=== PATIENT | female | born 1960 | race Hispanic/Latino ===

== ENCOUNTER 2018-03-13 06:52 | Outpatient (CLI) | payer BC ==
--- NOTE | 2018-03-13 08:48 | ULT ---
PELVIC ULTRASOUND WITH DOPPLER: (transabdominal, transvaginal, nunez scale, color flow, and spectral Doppler) History Vaginal bleeding. FINDINGS: The uterus measures 7.6 x 4.3 x 3.5 cm without focal mass or endometrial fluid. The endometrium moody ures 12 mm in thickness. The left ovary is not visualized. The right ovary is normal measuring 3.8 x 2.6 x 1.7 cm and demonst rates flow. No adnexal masses are noted on either side. No free fluid is seen. IMPRESSION: 1. Nonvisualization of the left ovary. 2. Endometrial thickness is 12 mm. POS: OFF
== END 2018-03-13 06:53 | disposition home or self-care (01) ==
LOC: BICULT 06:52
PROVIDERS: ATTEND Family Medicine
DX: Z12.31 Encounter for screening mammogram for malignant neoplasm of breast (principal); N92.1 Excessive and frequent menstruation with irregular cycle
CPT/HCPCS: 76856; 77063; 77067

== ENCOUNTER 2018-04-30 15:30 | Inpatient (IN) | payer BC ==
[2018-05-01 15:39] VITALS: BMI 34.5
[2018-05-01 16:39] LABS: #Basophils 0.1 thou/uL (0.0-0.2); #Eosinphils 0.2 thou/uL (0.0-0.7); #Monocytes 0.5 thou/uL (0.11-0.59); #Neutrophils 3.6 thou/uL (1.40-6.50); %Basophils 0.9 % (0.0-1.0); %Eosinophils 2.8 % (0.0-10.0); %Lymphocytes 31.2 % (21.0-51.0); %Monocytes 7.3 % (0.0-10.0); %Neutrophils 57.8 % (42.0-75.0); Hemoglobin 13.4 g/dL (12.0-16.0); Mean Corpuscular Hemoglobin 30.9 pg (27.0-31.0); Mean Corpuscular Volume 93.5 fL (78.0-98.0); Mean Platelet Volume 8.8 fL (7.4-10.4); Platelet Count 259 thou/uL (130-400); RBC Distribution Width 14.1 % (11.5-14.5); Red Blood Cell (RBC) Count 4.32 mill/uL (4.20-5.40); White Blood Cell (WBC) Count 6.3 thou/uL (4.8-10.8)
[2018-05-01 16:57] LABS: Anion Gap 14 mmol/L (10-20); BUN (Urea Nitrogen) 21 mg/dL (9.8-20.1); Calc. Creatinine Clearance 0 mL/min (70-130); Calcium 10.1 mg/dL (7.8-10.44); Carbon Dioxide 22 mmol/L (22-29); Chloride 104 mmol/L (98-107); Estimated GFR-MDRD 71; Glucose 150 mg/dL (70-105); Potassium 4.1 mmol/L (3.5-5.1); Sodium 136 mmol/L (136-145)
--- NOTE | 2018-05-06 12:25 | HP ---
DATE OF PLANNED PROCEDURE: 05/07/2018. PROCEDURE TO BE PERFORMED: Robotic-assisted total laparoscopic hysterectomy with bilateral salpingo-oophorectomy. PREOPERATIVE DIAGNOSIS: Postmenopausal bleeding with endometrial biopsy reporting complex endometrial hyperplasia with focal atypia. HISTORY OF PRESENT ILLNESS: Ms. Shoshana Lehman is a 58-year-old female, who was referred from Dr. Aguilar for postmenopausal bleeding that began in February of 2018. The patient reports going through menopause at approximately age 14. She had no bleeding until February of this year, where she reports she bled for four continuous days like a menstrual period. She reports having cramps at that time. The patient denies any other prior postmenopausal bleeding. She had ultrasound evaluation at [facility] with an endometrial stripe measuring 12 mm. At her first consultation with me, we completed an office endometrial biopsy, which resulted complex endometrial hyperplasia with focal atypia. The patient was started on progestin therapy and returned to the office for review and discussion of her results. We discussed the diagnosis of endometrial hyperplasia with atypia as well as the management options, which included hysteroscopy with dilation and curettage versus robotic total laparoscopic hysterectomy with benign Gynecology versus referral to Gynecologic Oncology for further management. The risk and benefits of each of these options were discussed with the patient and she desired to schedule hysterectomy with bilateral salpingo-oophorectomy here locally at [place], understanding that there is a risk of concomitant endometrial cancer and potential need for future surgical or medical management after her procedure with ok. REVIEW OF SYSTEMS: Negative except as stated above. PAST MEDICAL HISTORY: Significant for obesity, diabetes, hypercholesterolemia, hypothyroidism, and depression. CURRENT MEDICATIONS: 1. Fluoxetine 20 mg. 2. Glipizide ER 10 mg once a day. 3. . 4. Levothyroxine 25 mcg once a day. 5. Losartan 25 mg once a day. 6. Medroxyprogesterone 10 mg once a day. 7. Metformin 1000 mg b.i.d. 8. Pioglitazone 30 mg once a day. 9. Rosuvastatin 20 mg at bedtime. 10. Tradjenta 5 mg tablet once a day. ALLERGIES: NO KNOWN DRUG ALLERGIES. PAST OBSTETRICAL HISTORY: G4, P3-0-1-3 with two vaginal deliveries and one section. GYNECOLOGIC HISTORY: Menopause reported at age 49 with postmenopausal bleeding that began at age 58. Last Pap smear March of 2017 within normal limits. No history of abnormal Pap smear. Most recent mammogram March of 2018, reported normal. No history of STDs or PID. No history of endometriosis, fibroids, infertility, PCOS, or ovarian cyst. FAMILY HISTORY: Negative. SOCIAL HISTORY: The patient is . She is a nonsmoker. PAST SURGICAL HISTORY: Significant for one section. PHYSICAL EXAMINATION: VITAL SIGNS: Height 5 feet 3 inches, weight 224 pounds, BMI of 40, blood pressure 134/78, pulse 86, respirations 18, and O2 saturation 98%. GENERAL: No acute distress. Alert and oriented, obese. HEENT: Grossly normal. LUNGS: Chest nonlabored breathing. Breath sounds not decreased. ABDOMEN: Soft and nondistended. No tenderness. No guarding. No masses; however, exam limited by obesity. : Normal external female genitalia. Normal vaginal mucosa. No vaginal discharge. No cervical discharge. No cervical lesions. Uterus, no masses, nonenlarged, nontender. Bladder and urethra normal meatus. Normal bladder. RECTUM: No perianal skin lesions or fissures. EXTREMITIES: No swelling. Normal range of motion. MUSCULOSKELETAL: No gross deformity. SKIN: No rashes. NEUROLOGIC: Grossly intact. MENTAL STATUS: Alert and oriented. Appropriate mood and affect. DIAGNOSTIC STUDIES: Pap smear 03/28/2018, negative for intraepithelial lesion or malignancy. HPV, negative. Endometrial biopsy, complex hyperplasia with atypia. Most recent hemoglobin A1c reported 7.4%. Ultrasound on March 13, 2018, reports uterus measuring 7.6 x 4.3 x 3.5 cm with no focal masses or endometrial fluid. The endometrium measures 12 mm in thickness. The left ovary was not visualized and the right ovary appeared normal. ASSESSMENT AND PLAN: Ms. Shoshana Lehman is a 58-year-old G4, P3-0-1-3 with postmenopausal bleeding and an endometrial sampling that reports complex hyperplasia with focal atypia. The patient has been offered four endometrial sampling with hysteroscopy and dilatation and curettage versus robotic total laparoscopic hysterectomy with bilateral salpingo-oophorectomy with benign gynecology versus referral to Director Decision Support/Oncology. The patient understands the risks are to include, but not limited to, bleeding, infection, damage to intraabdominal pelvic organs, inability to fully diagnose and treat all conditions at the time of surgery and possible need for future medical and/or surgical management. The patient has requested to schedule robotic assisted total laparoscopic hysterectomy with bilateral salpingo-oophorectomy with me at [facility]. Her questions have been answered to her satisfaction and she desires to proceed with the procedure as listed above. Job ID: [id number]
[2018-05-07] MEDS ORDERED: CeleCOXIB 100 MG CAP ONE (06:15)
[2018-05-07] MEDS ORDERED: Gabapentin 300 MG CAP ONE (06:15)
[2018-05-07] MEDS ORDERED: Famotidine/PF 20 mg/2ml Vial ONE (06:16)
[2018-05-07] MEDS ORDERED: Midazolam HCl 2 mg/2 ml Vial ONE ×2 (06:31→07:27)
[2018-05-07] MEDS ORDERED: Fentanyl 100 MCG/2 ML VIAL ONE ×3 (06:31→10:54)
[2018-05-07] MEDS ORDERED: Bupivacaine HCl 0.5%/Epinephrine 1:200,000/PF 30 ml Vial ONE (06:59)
[2018-05-07] MEDS ORDERED: diphenhydrAMINE 25 MG CAP PO PRN (07:47)
[2018-05-07] MEDS ORDERED: Simethicone Chewable 80 MG TAB PO PRN (07:47)
[2018-05-07] MEDS ORDERED: traMADol HCl 50 MG TAB PO PRN ×2 (07:47)
[2018-05-07] MEDS ORDERED: Promethazine HCl 25 MG/ML VIAL IM PRN ×2 (07:47→09:52)
[2018-05-07] MEDS ORDERED: Morphine 4 MG/ML VIAL SLOW IVP PRN (07:47)
[2018-05-07] MEDS ORDERED: Zolpidem Tartrate 5 MG TAB PO PRN (07:47)
[2018-05-07] MEDS ORDERED: Bisacodyl 10 MG SUPP PR PRN (07:47)
[2018-05-07] MEDS ORDERED: Ondansetron PF 4 MG/2 ML Vial IVP PRN (07:47)
[2018-05-07] MEDS ORDERED: Ropivacaine 0.2% 550 ML 550 ML NERVE BLCK SCH (08:00)
[2018-05-07] MEDS ORDERED: HYDROcodone/Acetaminophen 5/325 mg Tablet PO PRN (09:35)
[2018-05-07] MEDS ORDERED: Ondansetron HCl/PF 4 MG/2 ML Vial IVP PRN (09:52)
[2018-05-07] MEDS ORDERED: Promethazine HCl 25 MG/ML VIAL SLOW IVP PRN (09:52)
[2018-05-07] MEDS ORDERED: PHENYLEPHRINE-NS 100 MCG/ML 10 ML SYRINGE ONE (11:58)
[2018-05-07] MEDS ORDERED: Rocuronium Bromide 10 MG/ML (10ML VIAL) ONE (11:58)
[2018-05-07] MEDS ORDERED: Lidocaine 1% PF 5 ML VIAL ONE (11:58)
[2018-05-07] MEDS ORDERED: Ketorolac Tromethamine 30 MG/ML VIAL ONE (11:58)
[2018-05-07] MEDS ORDERED: Dexamethasone 20 MG/5 ML VIAL ONE (11:58)
[2018-05-07] MEDS ORDERED: Glycopyrrolate 0.2 MG/ML 5 ML SYRINGE ONE (11:58)
[2018-05-07] MEDS ORDERED: Ondansetron PF 4 MG/2 ML Vial ONE (11:58)
[2018-05-07] MEDS ORDERED: ePHEDrine 50 MG/ML VIAL ONE (11:58)
[2018-05-07] MEDS ORDERED: PROPOFOL 200 MG/20 ML VIAL ONE (11:58)
[2018-05-07] MEDS ORDERED: Ketorolac Tromethamine 30 MG/ML VIAL IVP SCH (12:00)
--- NOTE | 2018-05-07 12:02 | OP ---
DATE OF PROCEDURE: 05/07/2018 PREOPERATIVE DIAGNOSES: 1. A 58-year-old female with postmenopausal bleeding. 2. Office endometrial sampling consistent with complex hyperplasia with focal atypia. POSTOPERATIVE DIAGNOSES: 1. A 58-year-old female with postmenopausal bleeding. 2. Office endometrial sampling consistent with complex hyperplasia with focal atypia. PROCEDURES PERFORMED: Robotic assist total laparoscopic hysterectomy with bilateral salpingectomy, pelvic washings, and ON-Q pump placement. ASSISTANTS: 1. Ceci Mccord PA-C. 2. Florence Russell MD. COMPLICATIONS: None. EBL: 75 mL. URINE OUTPUT: At the start of the case, 200 mL. OPERATIVE FINDINGS: 1. Small uterus sounds to 6 cm. Small menopausal appearing cervix. Laparoscopic findings with normal-appearing uterus, tubes, and ovaries bilaterally. 2. Obesity. 3. Surgical site hemostatic. DESCRIPTION OF PROCEDURE: The patient was taken back to the OR with IV fluids running. When she was in the OR, she was placed in dorsal supine position and general anesthesia was obtained. Once the patient was asleep, she was placed in low dorsal lithotomy position with her arms tucked at her side. 2 g of Ancef were given preoperatively as well as gabapentin and Celebrex for ERAS protocol. The patient was then prepped and draped in normal fashion for gynecologic laparoscopy and the surgeons were scrubbed in. A Cavanaugh catheter was placed in the bladder and drained 200 mL of urine. A Jade syringe was placed at the tip of the catheter for bladder manipulation as needed during the case. An operative speculum was placed in the vagina and a small cervix was noted at the apex of the vagina. The cervix was grasped at the anterior lip with a tenaculum and sounded to 6 cm. Mayda-Emely manipulator was assembled with a 3 cm cup and a 6 cm tip. The cervix was serially dilated to allow passage of the Mayda-Emely manipulator tip. The Mayda-Emely manipulator was placed into the uterus and vagina in the routine fashion. The surgeon's gloves were then changed and attention was turned to the laparoscopic portion of the case. Beginning at the supraumbilical fold, local anesthesia was placed underneath the skin. A 12 mm skin incision was made with a scalpel. The Veress needle was placed through the skin incision and the abdomen was insufflated without difficulty. After the abdomen was insufflated to approximately 15 mmHg, a 12 mm trocar was placed through the skin incision. Once the trocar was placed, the laparoscope was placed through the trocar with the above findings noted. No intraabdominal adhesive disease was noted. The patient was then placed in Trendelenburg position. In similar fashion, the right and left lower quadrant 8 mm robotic trocars and in the right upper quadrant 11 mm front end assistant port were placed under direct visualization without difficulty. Prior to the start of the case, but after the trocars were placed, irrigation was used for collection of pelvic washings. These were collected in a trap and sent for cytologic review. After the pelvic washings were completed, the procedure began on the patient's left side. The left fallopian tube was grasped and elevated away from the left pelvic sidewall. The left fallopian tube was transected using combination of bipolar and monopolar cautery and the fallopian tube was removed from the operative field. The left ovary was then bluntly dissected away from excess adipose tissue that was between the bowel and the pelvic sidewall and the ovary. After this was completed, the IP ligament was identified as well as the ureter, which was noted to be well below the IP ligament. The IP ligament was cauterized and transected. The ovarian specimen was dissected away from the pelvic sidewall. The left connected to the uterus by the utero-ovarian ligament after the ovary was then dissected away from the pelvic sidewall, attention was turned to the round ligament. The round ligament on the patient's left side was cauterized, incised, and divided. It was skeletonized into anterior and posterior leaf, down towards the level of the uterine artery. The anterior leaf was taken down towards the bladder reflection. At this point, the bladder was backfilled. The patient was noted to have a very prominent bladder. The plane between the bladder flap and the uterus was visualized with the bladder distended and fine dissection was completed with the monopolar scissors to dissect the vesicouterine tissue allowing the bladder to be freed away from the cervix. After the uterine arteries were further skeletonized on the patient's left side, they were cauterized and transected. After this was completed, attention was turned to the contralateral side. The IP ligament on the patient's right side was identified. The ureter on the patient's right side was identified and noted to be well away from the IP ligament. The IP ligament was cauterized and transected. The fallopian tube was also dissected away from excess adipose tissue noted on the patient's right pelvic sidewall with the right adnexa dissected. Now, attention was turned to dissection of the round ligament on the patient's right side. The round ligament was cauterized, transected, and divided into anterior posterior leaf. The uterine artery was then skeletonized, cauterized, and transected. The bladder was backfilled again allowing for clear dissection between the cervix and the bladder, with the bladder dissected away from the cervix and colpotomy site. The bladder was then drained. The cervical vesical fascia was dissected away at the level of the colpotomy site. The colpotomy was then began anteriorly, was completed circumferentially. After the colpotomy was completed, bilateral ovaries and right fallopian tube were retracted into the vagina. The vaginal cuff was irrigated as well as the surgical pedicles along the adnexa. Any small areas of bleeding on the vaginal cuff were controlled with bipolar cautery. The vaginal cuff was then closed in 2 layers with V-Loc suture in a running fashion. After the vaginal cuff was closed, the pedicles were again irrigated and suctioned dry. The pressure was dropped down to 8 mmHg with no bleeding noted. An ON-Q catheter tip was placed in the midline below the umbilicus under direct visualization. The On-Q catheter was directed down into the cul-de-sac and primed noted to be flowing well. The catheter introducer was then removed. All surgical sites were hemostatic. The camera was then removed. The instruments were also removed from the abdomen and the counts were correct. Trocars were removed and the gas was released from the abdomen. The assistant attorney general placed a clean sponge in the vagina with no bleeding noted on the sponge. The supraumbilical fascia was closed with Vicryl suture. All 4 skin incisions were closed with Monocryl suture and dressed with Dermabond dressing. The patient was then cleaned, dried, extubated, and taken to recovery room in good condition. Job ID: [id number]
[2018-05-07] MEDS: Sodium Chloride 0.9% 1,000 ML IV SCH ×3 (12:08→23:52)
[2018-05-07] MEDS ORDERED: glipiZIDE 10 MG TAB PO SCH (17:00)
[2018-05-07] MEDS: metFORMIN 500 MG TAB PO SCH (18:31)
[2018-05-07] MEDS: Ketorolac Tromethamine 30 MG/ML VIAL IVP SCH ×2 (18:31→22:49)
[2018-05-07] MEDS ORDERED: Losartan 25 MG TAB PO SCH (21:00)
[2018-05-07] MEDS ORDERED: Pioglitazone HCl 15 MG TAB PO SCH (21:00)
[2018-05-07] MEDS ORDERED: Rosuvastatin 20 MG TAB PO SCH (21:00)
[2018-05-08] MEDS: Ketorolac Tromethamine 30 MG/ML VIAL IVP SCH ×2 (05:53→09:27)
[2018-05-08] MEDS ORDERED: Levothyroxine Sodium 88 MCG TAB PO SCH (06:00)
[2018-05-08 06:15] LABS: Hemoglobin 10.9 g/dL (12.0-16.0); Mean Corpuscular HGB CONC 32.4 g/dL (32.0-36.0); Mean Corpuscular Hemoglobin 31.2 pg (27.0-31.0); Mean Corpuscular Volume 96.2 fL (78.0-98.0); Platelet Count 211 thou/uL (130-400); RBC Distribution Width 14.2 % (11.5-14.5); Red Blood Cell (RBC) Count 3.48 mill/uL (4.20-5.40); White Blood Cell (WBC) Count 8.6 thou/uL (4.8-10.8)
[2018-05-08 08:06] VITALS: TEMP 97.6
[2018-05-08] MEDS ORDERED: Alogliptin 25 MG TAB PO SCH (09:00)
--- NOTE | 2018-05-08 09:04 | PDOC.EVN ---
Event Note - Event Note Event Note: HD 1/POD1 S: doing well, no NV, no pain, no concerns O: Vital Signs (12 hours) Temp Pulse Resp BP Pulse Ox 05/08/18 08:06 97.6 F 74 16 128/62 98 05/08/18 06:03 98.2 F 89 16 120/57 L 98 Weight Weight 189 lb NAD, A and O Non labored breathing Abd soft, obese, non distended, incision CDI x 4 Ext no Homans Path pending A/P: POD1, doing well, plan for DC today, pelvic rest at home.
[2018-05-08] MEDS: metFORMIN 500 MG TAB PO SCH (09:22)
[2018-05-08] MEDS: FLUoxetine HCl 20 MG CAP PO SCH (09:22)
[2018-05-08] MEDS: HYDROcodone/Acetaminophen 5/325 mg Tablet PO PRN ×2 (09:23→12:04)
[2018-05-08] MEDS: Sodium Chloride 0.9% 1,000 ML IV SCH (09:24)
[2018-05-08 11:46] VITALS: BP 129/60
[2018-05-12] MEDS ORDERED: Ibuprofen 800 MG TAB PO SCH (22:00)
== END 2018-05-08 12:22 | disposition home or self-care (01) | DRG 743 ==
LOC: SURG A 05-07 05:51 → 3SE 05-07 12:32
PROVIDERS: ADMIT Obstetrics & Gynecology; ATTEND Obstetrics & Gynecology
PROC: 0UT94ZZ Resection of Uterus, Percutaneous Endoscopic Approach (ICD-10-PCS; principal; 2018-05-07)
PROC: 0UT74ZZ Resection of Bilateral Fallopian Tubes, Percutaneous Endoscopic Approach (ICD-10-PCS; 2018-05-07)
PROC: 8E0W4CZ Robotic Assisted Procedure of Trunk Region, Percutaneous Endoscopic Approach (ICD-10-PCS; 2018-05-07)
DX: N85.02 Endometrial intraepithelial neoplasia [EIN] (principal); N95.0 Postmenopausal bleeding; E66.9 Obesity, unspecified; E11.9 Type 2 diabetes mellitus without complications; E78.00 Pure hypercholesterolemia, unspecified; E03.9 Hypothyroidism, unspecified; F32.9 Major depressive disorder, single episode, unspecified; Z68.34 Body mass index [BMI] 34.0-34.9, adult
CPT/HCPCS: 36415; 36416; 80048; 85025; 85027; 86850; 86900; 86901; 88112; 88307; A4306; J0670; J1100; J1885; J2001; J2250; J2270; J2405; J2704; J2795; J3010; J3490; S0028

== ENCOUNTER 2018-05-01 15:20 | Outpatient (CLI) | payer BC ==
--- NOTE | 2018-05-03 16:37 | EKG ---
Test Reason : Blood Pressure : / mmHG Vent. Rate : 077 BPM Atrial Rate : 077 BPM P-R Int : 134 ms QRS Dur : 074 ms QT Int : 388 ms P-R-T Axes : 040 059 042 degrees QTc Int : 439 ms Normal sinus rhythm Low voltage QRS Cannot rule out Anterior infarct , age undetermined Abnormal ECG No previous ECGs available Confirmed by DR. Evangelista SHAW ([id number]) on 05/03/2018 4:36:51 PM Referred By: ILA Confirmed By:DR. Evangelista SHAW
== END 2018-05-01 15:21 | disposition home or self-care (01) ==
LOC: LABBT 15:20
PROVIDERS: ATTEND Obstetrics & Gynecology
DX: Z01.818 Encounter for other preprocedural examination (principal); N85.01 Benign endometrial hyperplasia; N95.0 Postmenopausal bleeding
CPT/HCPCS: 93005; 93010

== ENCOUNTER 2019-02-10 09:37 | Outpatient (CLI) | payer BC ==
--- NOTE | 2019-02-10 10:40 | ULT ---
ABDOMEN ULTRASOUND: HISTORY: Abdominal pain. FINDINGS: There is a 1.4 x 1.5 x 1.9 cm hypoechoic lesion in the left lobe of the liver. No intrahepatic ductal dilatation is seen. There are echogenic, nonmobile, nonshadowing foci arising from the gallbladder wall. The largest of t billy has a mass-like appearance measuring 2.5 cm and may contain calcifications. The gallbladder wall is thickened, measuring 4 mm. No pericholecystic fluid is seen. No mobile shadowing echogenic foci are seen to suggest calculi. The pancreas is not well visualized. The common duct measures 14 mm in diameter. No hydronephrosis is seen on either side. There is a 1.3 cm right renal cyst. No free fluid is noted in the abdomen. IMPRESSION: 1. Findings suspicious for a gallbladder mass. 2. Gallbladder polyps. 3. Hypoechoic lesion in the liver. 4. Right renal cyst. 5. Further evaluation with contrast enhanced CT scan of the abdomen and pelvis is recommended since t he possibility of malignancy/metastatic disease cannot be excluded. POS: OFF
== END 2019-02-10 09:38 | disposition home or self-care (01) ==
LOC: BICULT 09:37
PROVIDERS: ATTEND Family Medicine
DX: R10.84 Generalized abdominal pain (principal); K82.4 Cholesterolosis of gallbladder; N28.1 Cyst of kidney, acquired; K76.9 Liver disease, unspecified
CPT/HCPCS: 93975

== ENCOUNTER 2019-04-11 12:35 | Outpatient (CLI) | payer BC ==
--- NOTE | 2019-04-11 13:20 | ULT ---
Exam: Right lower extremity venous ultrasound with Doppler HISTORY: Pain. Edema. Evaluate for thrombus. TECHNIQUE: Grayscale, color flow, Doppler imaging and spectral wave muscle right lower extremity deep venous system FINDINGS: There is partial compression and partial flow in the right common femoral vein and the profunda femor al vein. The posterior tibial vein, greater saphenous vein and profunda femoral vein demonstrate flow. There is also flow in the femoral vein. IMPRESSION: Partial thrombus in the right lower extremity deep venous system involving the common fem oral vein. Results study were conveyed to Dr. Sugn's office 1:17 PM on 04/11/2019 by the asphalt surface heater operator Paola ARITA
== END 2019-04-11 12:36 | disposition home or self-care (01) ==
LOC: BICULT 12:35
PROVIDERS: ATTEND Family Medicine
DX: Z03.89 Encounter for observation for other suspected diseases and conditions ruled out (principal); I82.411 Acute embolism and thrombosis of right femoral vein
CPT/HCPCS: 36415; 80061; 80076; 82105; 82378; 85652